=== PATIENT | male | born 1985 ===

== ENCOUNTER 2016-06-16 12:30 | Outpatient (CLI) | payer OTHER ==
[~2016-06-16 12:30] MED LIST: CYCLOBENZAPRINE10 MG PO; LOPRESSOR25 MG PO; NAPROXEN250 MG PO; OMEPRAZOLE20 M1; VALACYCLOVIR H500 MG
--- NOTE | 2016-06-22 14:00 | DIAGNOSTIC IMAGING REPORT ---
PROCEDURE: 2-D M-mode echo Doppler CLINICAL INDICATION: Tachycardia TECHNIQUE: Standard technique COMPARISON: None available FINDINGS: The aortic valve exhibits thickening in the study consistent with aortic sclerosis no stenosis trace to 1+ aortic insufficiency is detected. The mitral valve exhibits 1+ MR no stenosis seen tricuspid valve is normal configuration pulmonic valve exhibits 1+ PI. Left and right atrial enlargement is present right ventricular dimension is normal with normal function ventricular dimension is normal LVH is present ejection fraction is 50% diffusely hypocontractile aortic root is mildly increased in size and 3.7 cm no abnormalities of the pericardium are seen IMPRESSION: Aortic sclerosis no stenosis 1+ MR Ejection fraction 50% diffusely mildly hypocontractile Biatrial enlargement LVH Mild aortic root enlargement measuring 3.7 cm
== END 2016-06-16 23:00 ==
LOC: US SRH 12:30
DX: R00.0 Tachycardia, unspecified (principal)